=== PATIENT | male | born 1965 ===

== ENCOUNTER 2021-05-19 02:49 | Outpatient (CLI) | payer MEDICAID, SELFPAY ==
[2021-05-19 07:24] VITALS: BP 126/69; PULSE 56; RESP 12; TEMP 36.3; O2SAT 93
[2021-05-19] MEDS: Normal Saline 500 ML 30 ML IV (07:32)
[2021-05-19] MEDS: Normal Saline Flush 10 ML SYR IVP (07:32)
[2021-05-19 07:45] VITALS: BP 121/70; PULSE 52; RESP 16; TEMP 36.4; O2SAT 93
[2021-05-19 08:21] VITALS: BP 114/69; PULSE 53; RESP 24; TEMP 36.5; O2SAT 91
[2021-05-19 09:05] VITALS: BP 114/70; PULSE 54; RESP 16; TEMP 36.5; O2SAT 97
== END 2021-05-19 02:50 | disposition home or self-care (01) ==
LOC: INF 02:52
PROVIDERS: Visit Provider Family Medicine
DX: U07.1 COVID-19 (principal)
CPT/HCPCS: 96365